=== PATIENT | male | born 1995 | race Hispanic/Latino ===

== ENCOUNTER 2024-06-04 19:35 | Emergency (ER) | payer BC ==
[2024-06-04] MEDS ORDERED: Ondansetron PF 4 MG/2 ML Vial ONE (19:39)
[2024-06-04 20:06] LABS: #Basophils 0.1 thou/uL (0.0-0.2); #Eosinphils 0.1 thou/uL (0.0-0.7); #Lymphocytes 1.4 thou/uL (1.20-3.40); #Monocytes 0.6 thou/uL (0.11-0.59); #Neutrophils 9.8 thou/uL (1.40-6.50); %Basophils 0.5 % (0.0-1.0); %Eosinophils 0.6 % (0.0-10.0); %Lymphocytes 11.7 % (21.0-51.0); %Monocytes 5.3 % (0.0-10.0); %Neutrophils 81.9 % (42.0-75.0); Hematocrit 47.5 % (42.0-52.0); Hemoglobin 15.3 g/dL (14.0-18.0); Mean Corpuscular HGB CONC 32.1 g/dL (32.0-36.0); Mean Corpuscular Hemoglobin 29.8 pg (27.0-31.0); Mean Platelet Volume 8.6 fL (7.4-10.4); Platelet Count 194 10x3/uL (130-400); Red Blood Cell (RBC) Count 5.11 mill/uL (4.70-6.10)
[2024-06-04 20:12] LABS: ALT (SGPT) 72 U/L (8-55); AST (SGOT) 89 U/L (5-34); Albumin 4.6 g/dL (3.5-5.0); Alkaline Phosphatase 74 U/L (40-110); Anion Gap 17 mmol/L (10-20); BUN (Urea Nitrogen) 18 mg/dL (8.9-20.6); Bilirubin, Total 0.4 mg/dL (0.2-1.2); CK (CPK) 1838 U/L (30-200); Calc. Creatinine Clearance 0 mL/min (70-130); Calcium 9.6 mg/dL (7.8-10.44); Carbon Dioxide 24 mmol/L (22-29); Chloride 105 mmol/L (98-107); Estimated GFR 91; Globulin 3.1 g/dL (2.4-3.5); Glucose 115 mg/dL (70-105); Potassium 3.6 mmol/L (3.5-5.1); Protein, Total 7.7 g/dL (6.0-8.3); Sodium 142 mmol/L (136-145)
[2024-06-04 20:14] LABS: Troponin I Less than 0.010 ng/mL (< 0.028)
[2024-06-04] MEDS ORDERED: Sodium Chloride 0.9% 1,000 ML ONE (20:52)
[2024-06-04] MEDS ORDERED: Ondansetron ODT 4 MG TAB ONE (22:27)
== END 2024-06-04 22:33 | disposition home or self-care (01) ==
LOC: MADERS 19:35
DX: M62.82 Rhabdomyolysis (principal); T67.5XXA Heat exhaustion, unspecified, initial encounter
CPT/HCPCS: 80053; 82550; 84484; 85025; 96361; 96374; J2405; J7030; Q0162